=== PATIENT | male | born 1930 | race Caucasian/White ===

== ENCOUNTER 2018-09-14 09:55 | Observation (INO) ==
[2018-09-14] MEDS ORDERED: NITROGLYCERIN SL 0.4 MG TABLET SL PRN (10:23)
[2018-09-14] MEDS ORDERED: ENOXAPARIN 100 MG/ML SYRINGE SUBCUT STA (10:23)
[2018-09-14] MEDS ORDERED: ASPIRIN 325 MG TABLET PO STA (10:23)
[2018-09-14 10:43] LABS: Basophils % 0.4 % (0.0-0.8); Eosinophils # 0.1 10*3/uL (0.0-0.87); Eosinophils % 0.9 % (0.00-10.9); Hemoglobin 12.1 GM/DL (14.0-18.0); Immature Granulocytes Absolute 0.09 #; Lymphocytes # 2.6 10*3/uL (1.4-4.0); Mean Corpuscular HGB Conc 33.6 GM/DL (32-36); Mean Corpuscular Hemoglobin 31 PG (27-34); Mean Corpuscular Volume 92.1 FL (87-102); Mean Platelet Volume 10.2 FL (9.6-12.0); Monocytes # 1.1 10*3/uL (0.11-0.8); Monocytes % 11.9 % (1.7-12.7); Neutrophils # 5.4 10*3/uL (1.4-7.4); Neutrophils % 57.8 % (38.7-73.9); Platelet Count 180 T/CUMM (130-400); Red Blood Count 3.91 MC/CUMM (3.8-5.5); Red Cell Distribution Width 13.5 % (9.3-17.3); White Blood Count 9.4 T/CUMM (4-12)
[2018-09-14 11:10] LABS: Bilirubin,Total 1.7 MG/DL (0.2-1.0); Calcium 9.9 MG/DL (8.5-10.1); Potassium 3.9 MMOL/L (3.5-5.1); Total Protein 7.4 G/DL (6.4-8.3)
[2018-09-14] MEDS ORDERED: ONDANSETRON 4 MG/2 ML VIAL IV PRN (12:01)
[2018-09-14] MEDS ORDERED: POTASSIUM CHLORIDE 20 MEQ TABLET PO PRN (12:01)
[2018-09-14] MEDS ORDERED: MAGNESIUM SULF RIDER 2 GM in PREMIX 1 EACH IV PRN ×2 (12:01→15:36)
[2018-09-14] MEDS ORDERED: cloNIDine 0.1 MG TABLET PO PRN (12:04)
[2018-09-14] MEDS ORDERED: metOLazone 2.5 MG TABLET PO PRN (12:04)
[2018-09-14] MEDS ORDERED: FUROSEMIDE 40 MG TABLET PO PRN (12:04)
[2018-09-14] MEDS ORDERED: POTASSIUM CHLORIDE RIDER 10 MEQ in PREMIX 1 EACH IV PRN (15:36)
[2018-09-14] MEDS: IPRATROPIUM 500 MCG/2.5 ML NEB RESP TX SCH ×2 (15:38→19:26)
[2018-09-14] MEDS ORDERED: diphenhydrAMINE CAP 25 MG CAPSULE PO PRN (16:54)
[2018-09-14] MEDS ORDERED: MAGNESIUM HYDROXIDE SUSP 30 ML UDCUP PO PRN (16:54)
[2018-09-14] MEDS: LOSARTAN 50 MG TABLET PO SCH (17:10)
[2018-09-14] MEDS: THEOPHYLLINE ER 300 MG TABLET PO SCH ×2 (17:11→20:54)
[2018-09-14] MEDS: TAMSULOSIN 0.4 MG CAPSULE PO SCH ×2 (17:11→20:54)
[2018-09-14] MEDS: CARVEDILOL 3.125 MG TABLET PO SCH ×2 (17:11→20:54)
[2018-09-14] MEDS: MONTELUKAST 10 MG TABLET PO SCH (17:11)
[2018-09-14] MEDS: IRON (CARBONYL)/VIT C/B12/FA TABLET PO SCH (17:11)
[2018-09-14] MEDS: SPIRONOLACTONE 25 MG TABLET PO SCH (17:11)
[2018-09-14] MEDS: SODIUM CHLORIDE 0.9% 1,000 ML IV SCH (17:12)
[2018-09-14] MEDS: NITROGLYCERIN 2% OINT 1 INCH/GM PACK TOP SCH (17:20)
[2018-09-14] MEDS: ATORVASTATIN 40 MG TABLET PO SCH (20:54)
[2018-09-15] MEDS: ENOXAPARIN 100 MG/ML SYRINGE SUBCUT SCH ×3 (02:09→21:33)
[2018-09-15] MEDS: NITROGLYCERIN 2% OINT 1 INCH/GM PACK TOP SCH ×3 (02:10→17:51)
[2018-09-15 05:42] LABS: Basophils % 0.6 % (0.0-0.8); Eosinophils # 0.2 10*3/uL (0.0-0.87); Eosinophils % 3.3 % (0.00-10.9); Hemoglobin 10.2 GM/DL (14.0-18.0); Immature Granulocytes % 0.6 %; Immature Granulocytes Absolute 0.04 #; Lymphocytes # 2.2 10*3/uL (1.4-4.0); Lymphocytes % 33.2 % (21.2-54.2); Mean Corpuscular Hemoglobin 31 PG (27-34); Mean Corpuscular Volume 92.3 FL (87-102); Mean Platelet Volume 10.7 FL (9.6-12.0); Monocytes # 0.7 10*3/uL (0.11-0.8); Monocytes % 10.8 % (1.7-12.7); Neutrophils # 3.5 10*3/uL (1.4-7.4); Neutrophils % 51.5 % (38.7-73.9); Platelet Count 176 T/CUMM (130-400); Red Blood Count 3.25 MC/CUMM (3.8-5.5); Red Cell Distribution Width 13.4 % (9.3-17.3); White Blood Count 6.7 T/CUMM (4-12)
[2018-09-15] MEDS: SODIUM CHLORIDE 0.9% 1,000 ML IV SCH ×2 (05:43→17:51)
[2018-09-15 05:55] LABS: Calcium 8.7 MG/DL (8.5-10.1); Osmolality,Calculated 284.5 MOS/KG (273-304); Potassium 3.7 MMOL/L (3.5-5.1); Risk Ratio 3.97; Thyroid Stimulating Hormone 2.82 uIU/ml (0.358-3.74); VLDL CHOLESTEROL 53.6 MG/DL
[2018-09-15] MEDS: IPRATROPIUM 500 MCG/2.5 ML NEB RESP TX SCH ×4 (07:44→20:22)
[2018-09-15] MEDS ORDERED: HEPARIN/NACL 0.9% 2 UNITS/ML 2,000 ML IV ONE (07:49)
[2018-09-15] MEDS ORDERED: ceFAZolin 1,000 MG in SYRINGE 1 EACH IV ONE (08:00)
[2018-09-15] MEDS ORDERED: diphenhydrAMINE CAP 25 MG CAPSULE PO ONE (08:30)
[2018-09-15] MEDS ORDERED: DIAZEPAM 5 MG TABLET PO ONE (08:30)
[2018-09-15] MEDS ORDERED: fentaNYL 100 MCG/2 ML VIAL ONE (08:50)
[2018-09-15] MEDS ORDERED: MIDAZOLAM 2 MG/2 ML VIAL ONE (08:50)
[2018-09-15] MEDS ORDERED: Fluticasone/Vilanterol [Breo Ellipta 200-25 Mcg Inh] INH SCH (09:00)
[2018-09-15] MEDS ORDERED: NON-FORMULARY MEDICATION (Esomeprazole Magnesium [Nexium] 40 MG) PO SCH (09:00)
[2018-09-15] MEDS ORDERED: fentaNYL 100 MCG/2 ML VIAL IV ONE (09:55)
[2018-09-15] MEDS ORDERED: MIDAZOLAM 2 MG/2 ML VIAL IV ONE (09:55)
[2018-09-15] MEDS ORDERED: HEPARIN 5,000 UNIT/1 ML VIAL ONE (10:03)
[2018-09-15] MEDS ORDERED: HEPARIN 5,000 UNIT/1 ML VIAL IV ONE (10:08)
[2018-09-15] MEDS: ASPIRIN EC 81 MG TABLET PO SCH (14:33)
[2018-09-15] MEDS: IRON (CARBONYL)/VIT C/B12/FA TABLET PO SCH (14:33)
[2018-09-15] MEDS: TAMSULOSIN 0.4 MG CAPSULE PO SCH ×2 (14:33→21:32)
[2018-09-15] MEDS: CLOPIDOGREL 75 MG TABLET PO SCH (14:33)
[2018-09-15] MEDS: MONTELUKAST 10 MG TABLET PO SCH (14:33)
[2018-09-15] MEDS: THEOPHYLLINE ER 300 MG TABLET PO SCH ×2 (14:33→21:32)
[2018-09-15] MEDS: PANTOPRAZOLE 40 MG TABLET PO SCH (14:33)
[2018-09-15] MEDS: LOSARTAN 50 MG TABLET PO SCH (14:33)
[2018-09-15] MEDS: CETIRIZINE 10 MG TABLET PO SCH (14:33)
[2018-09-15] MEDS: LEVOTHYROXINE 112 MCG TABLET PO SCH (14:33)
[2018-09-15] MEDS: SPIRONOLACTONE 25 MG TABLET PO SCH (14:33)
[2018-09-15] MEDS: CARVEDILOL 3.125 MG TABLET PO SCH ×2 (14:34→21:32)
[2018-09-15] MEDS: ATORVASTATIN 40 MG TABLET PO SCH (21:32)
[2018-09-16] MEDS: NITROGLYCERIN 2% OINT 1 INCH/GM PACK TOP SCH ×2 (01:46→06:20)
[2018-09-16] MEDS: LEVOTHYROXINE 112 MCG TABLET PO SCH (06:21)
[2018-09-16 06:24] LABS: Basophils % 0.5 % (0.0-0.8); Eosinophils # 0.2 10*3/uL (0.0-0.87); Eosinophils % 3.3 % (0.00-10.9); Hemoglobin 10.4 GM/DL (14.0-18.0); Immature Granulocytes % 0.8 %; Immature Granulocytes Absolute 0.05 #; Lymphocytes # 1.7 10*3/uL (1.4-4.0); Lymphocytes % 26.3 % (21.2-54.2); Mean Corpuscular HGB Conc 33.5 GM/DL (32-36); Mean Corpuscular Hemoglobin 31 PG (27-34); Mean Platelet Volume 10.6 FL (9.6-12.0); Monocytes # 0.6 10*3/uL (0.11-0.8); Monocytes % 10.1 % (1.7-12.7); Neutrophils # 3.7 10*3/uL (1.4-7.4); Platelet Count 158 T/CUMM (130-400); Red Blood Count 3.37 MC/CUMM (3.8-5.5); Red Cell Distribution Width 13.2 % (9.3-17.3); White Blood Count 6.3 T/CUMM (4-12)
[2018-09-16 06:25] LABS: Calcium 8.6 MG/DL (8.5-10.1); Osmolality,Calculated 278.7 MOS/KG (273-304)
[2018-09-16] MEDS: IPRATROPIUM 500 MCG/2.5 ML NEB RESP TX SCH (07:16)
[2018-09-16 08:27] VITALS: BP 142/72
[2018-09-16] MEDS: CLOPIDOGREL 75 MG TABLET PO SCH (08:42)
[2018-09-16] MEDS: IRON (CARBONYL)/VIT C/B12/FA TABLET PO SCH (08:42)
[2018-09-16] MEDS: ASPIRIN EC 81 MG TABLET PO SCH (08:42)
[2018-09-16] MEDS: MONTELUKAST 10 MG TABLET PO SCH (08:42)
[2018-09-16] MEDS: PANTOPRAZOLE 40 MG TABLET PO SCH (08:42)
[2018-09-16] MEDS: LOSARTAN 50 MG TABLET PO SCH (08:42)
[2018-09-16] MEDS: CARVEDILOL 3.125 MG TABLET PO SCH (08:42)
[2018-09-16] MEDS: SPIRONOLACTONE 25 MG TABLET PO SCH (08:42)
[2018-09-16] MEDS: THEOPHYLLINE ER 300 MG TABLET PO SCH (08:42)
[2018-09-16] MEDS: CETIRIZINE 10 MG TABLET PO SCH (08:43)
[2018-09-16] MEDS: TAMSULOSIN 0.4 MG CAPSULE PO SCH (08:43)
[2018-09-16] MEDS: ENOXAPARIN 100 MG/ML SYRINGE SUBCUT SCH ×2 (08:44→10:05)
== END 2018-09-16 11:03 | disposition home or self-care (01) ==
LOC: N.EDINP 09:55 → N.ED 09:55 → SUATTDRO 12:01 → N.TELES 13:47
PROVIDERS: ADMIT Hospitalist; ATTEND Internal Medicine Cardiovascular Disease